=== PATIENT | male | born 1945 | race Caucasian/White ===

== ENCOUNTER 2020-12-25 09:29 | Outpatient (CLI) | payer MEDICARE | END 2020-12-25 09:30 | disposition home or self-care (01) | LOC: CSHULT 09:29 | PROVIDERS: ATTEND Family Medicine | DX: R01.1 Cardiac murmur, unspecified (principal); I51.7 Cardiomegaly; I35.1 Nonrheumatic aortic (valve) insufficiency | CPT/HCPCS: 93306 ==